=== PATIENT | female | born 1970 | race Caucasian/White ===

== ENCOUNTER 2020-08-01 19:08 | Emergency (ER) | payer OTHER, SELFPAY ==
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
[2020-08-01 19:05] VITALS: BP 128/82; PULSE 102; RESP 20; TEMP 36.5; O2SAT 99
[2020-08-01] MEDS: OLANZapine 10 MG INJ VIAL (19:36)
[2020-08-01] MEDS: WATER, STERILE FOR INJECTION 10 ML VIAL XX (19:36)
[2020-08-01 19:41] LABS: Basophils Absolute Auto 0.1 K/mm3 (0.0-0.1); Eosinophils Absolute Auto 0.2 K/mm3 (0-0.3); Eosinophils Percent Auto 2.7 % (0-4.4); Hematocrit 38.9 % (37.0-47.0); Hemoglobin 13.4 g/dL (12.0-15.0); Lymphocytes Absolute Auto 4.35 K/mm3 (0.9-3.2); Lymphocytes Percent Auto 69.8 % (18.3-44.2); Mean Corpuscular HGB Conc 34.4 g/dl (32-36); Mean Corpuscular Hemoglobin 35.4 pg (26-34); Mean Corpuscular Volume 102.6 fl (80-100); Mean Platelet Volume 9.6 fl (7.4-10.4); Monocytes Absolute Auto 0.3 K/mm3 (0.1-0.6); Monocytes Percent Auto 5.5 % (2.6-8.5); Neutrophils Absolute Auto 1.3 K/mm3 (1.3-6.7); Platelet Count Result 164 k/mm3 (150-375); Red Blood Count 3.79 M/mm3 (4.2-5.4); Red Cell Distribution Width 14.2 % (11.5-14.5); White Blood Count 6.2 K/mm3 (4.5-10.0)
[2020-08-01 19:54] LABS: Alanine Aminotransferase 24 U/L (4-35); Albumin Level 4.3 g/dL (3.5-5.1); Alkaline Phosphatase 107 U/L (38-126); Anion Gap 17 mmol/L (8-16); Aspartate Amino Transferase 77 U/L (14-36); Bilirubin,Total 0.4 mg/dL (0.2-1.3); Blood Urea Nitrogen 12 mg/dL (7-17); Calcium 8.4 mg/dL (8.4-10.2); Carbon Dioxide 23 mmol/L (22-30); Chloride 103 mmol/L (98-107); Estimated Glomerular Filt Rate > 60; Glucose 87 mg/dL (65-105); Potassium 3.6 mmol/L (3.4-5.0); Sodium 143 mmol/L (137-145)
[2020-08-01] MEDS: LORazepam INJ (*CRX) 2 MG/ML VIAL IV PUSH (19:57)
[2020-08-01 20:05] LABS: Ethanol 369 mg/dL (<10)
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
[2020-08-01 20:36] LABS: Add Urine Microscopic? YES; Appearance Urine Clear (Clear); Bacteria Urine Trace /hpf; Bilirubin Urine Negative (Negative); Blood Urine 1+ (Negative); Color Urine Yellow (Yellow); Glucose Urine UA Negative (Negative); Hyaline Casts Urine 20-29 /lpf; Ketones Urine Negative (Negative); Leukocyte Esterase Ur Negative LEU/UL (Negative); Mucus Urine Rare /lpf; Nitrate Urine Negative (Negative); Protein Urine 1+ mg/dL (Negative); Squamous Epithelial Cell Urine Rare /hpf (Few); Urobilinogen Urine Negative mg/dL (<2.0); WBC Urine 0-3 /hpf
[2020-08-01 20:49] LABS: Amphetamine Screen Urine Negative (Negative); Barbiturate Screen Urine Negative (Negative); Benzodiazepines Screen Urine Negative (Negative); Cannabinoid Screen Urine Negative (Negative); Cocaine Screen Urine Negative (Negative); Methadone Screen Urine Negative (Negative); Opiate Screen Urine Negative (Negative); Phencyclidine Screen Urine Negative (Negative)
[2020-08-01 21:39] VITALS: BP 118/79; PULSE 81; RESP 20; O2SAT 97
[2020-08-02 00:54] VITALS: BP 128/72; PULSE 89; RESP 16; O2SAT 98
--- NOTE | 2020-08-02 01:05 | PC.NURSE ---
pt came out of room and wants to leave. explained to patient that we could not allow her to leave until she had a ride, due to her high alcohol level. pt upset. dr ansari told her that she could go if she had a ride. pt walks out. pt denies si/hi.
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
[2020-08-02 01:54] LABS: Ethanol 161 mg/dL (<10)
[2020-08-02 18:13] LABS: SARS-CoV-2 RNA PCR Negative
== END 2020-08-02 01:30 | disposition left against medical advice (07) ==
PROVIDERS: Emergency Provider Emergency Medicine
DX: F10.929 Alcohol use, unspecified with intoxication, unspecified (principal); S00.03XA Contusion of scalp, initial encounter; Z20.822 Contact with and (suspected) exposure to COVID-19; Y90.8 Blood alcohol level of 240 mg/100 ml or more; Y04.2XXA Assault by strike against or bumped into by another person, initial encounter
CPT/HCPCS: 36415; 70450; 80053; 80307; 81001; 81025; 85025; 96374; 96375; 99284; C9803; J2060; U0003; U0005

== ENCOUNTER 2020-08-15 18:26 | Inpatient (IN) | payer OTHER, SELFPAY ==
--- NOTE | ~2020-08-15 | CT_ITS ---
EXAMINATION: CT abdomen pelvis w con DATE: 08/15/2020 22:19 INDICATION: Abdominal pain TECHNIQUE: Computed tomography (CT) of the abdomen and pelvis was performed with 100 mL Omnipaque-350 intravenous contrast. Automated exposure control and iterative reconstruction technique were employe d. The dose-length product was 212.05 mGy-cm. COMPARISON: None FINDINGS: Mild discoid atelectasis in the right middle lobe. Small pneumatocele in the left lower lobe. Heart s ize is normal. No pericardial or pleural effusion. Small sliding-type hiatal hernia. Focal hepatic st eatosis at the ligamentum teres. Gallbladder is distended to 4.3 cm but without wall thickening or pe richolecystic inflammatory change to suggest acute cholecystitis. Spleen, bilateral adrenal glands an d kidneys are normal. There is mild stranding and small amount of retroperitoneal fluid along the martha l of the pancreas raising concern for acute interstitial pancreatitis. Pancreas itself is normal in a ppearance with homogeneous parenchymal enhancement. Normal appendix. No bowel obstruction. The uterus and bilateral adnexa are unremarkable. Mild diffuse bladder wall thickening likely due to nearly dec ompressed state although differential includes cystitis either acute or chronic. No abscess or free i ntraperitoneal gas. No pathologically enlarged abdominal or pelvic lymphadenopathy. Moderate to sever e lower lumbar spondylosis. IMPRESSION: 1. Radiographically uncomplicated acute interstitial pancreatitis. Correlate with amylase and lipase levels. 2. Small sliding-type hiatal hernia. 3. Diffuse mild bladder wall thickening likely due to decompressed state although differential would include cystitis either acute or chronic and would correlate with urinalysis. Reviewed, dictated and finalized at [facility]. [employer] ENGINEERING PROFESSOR IMPRESSION: 1. Radiographically uncomplicated acute interstitial pancreatitis. Correlate wi th amylase and lipase levels. 2. Small sliding-type hiatal hernia. 3. Diffuse mild bladder wall thickening likely due to decompressed state althou gh differential would include cystitis either acute or chronic and would correl ate with urinalysis.
[2020-08-15 18:23] VITALS: BP 159/100; PULSE 91; RESP 17; TEMP 36.2; O2SAT 98
--- NOTE | 2020-08-15 19:36 | PC.NURSE ---
Pt upset wanting to leave so she can go out and smoke. Dr. Jenkins spoke with patient. Per Dr. Jenkins it is ok for patient to go out and smoke and then come back in to room 4. IV removed from left AC intact. Bandaid applied.
--- NOTE | 2020-08-15 19:40 | PC.NURSE ---
Gait steady. Patient AXO x3. Pt returned to room 4.
[2020-08-15 20:07] LABS: Basophils Percent Auto 0.5 % (0.2-1.2); Eosinophils Percent Auto 0.1 % (0-4.4); Hematocrit 37.5 % (37.0-47.0); Hemoglobin 13.1 g/dL (12.0-15.0); Immature Granulocyte Absolute 0.02 K/mm3 (0.00-0.031); Immature Granulocyte Percent A 0.3 % (0-0.5); Lymphocytes Percent Auto 11.6 % (18.3-44.2); Mean Corpuscular HGB Conc 34.9 g/dl (32-36); Mean Corpuscular Hemoglobin 35.9 pg (26-34); Mean Corpuscular Volume 102.7 fl (80-100); Monocytes Absolute Auto 0.3 K/mm3 (0.1-0.6); Neutrophils Absolute Auto 6.5 K/mm3 (1.3-6.7); Neutrophils Percent Auto 83.5 % (45.5-73.1); Platelet Count Result 185 k/mm3 (150-375); Red Blood Count 3.65 M/mm3 (4.2-5.4); Red Cell Distribution Width 14.4 % (11.5-14.5); White Blood Count 7.8 K/mm3 (4.5-10.0)
[2020-08-15 20:14] LABS: Add Urine Microscopic? YES; Appearance Urine Turbid (Clear); Bacteria Urine Trace /hpf; Bilirubin Urine Negative (Negative); Blood Urine Negative (Negative); Color Urine Yellow (Yellow); Glucose Urine UA Negative (Negative); Ketones Urine Negative (Negative); Leukocyte Esterase Ur 1+ LEU/UL (Negative); Mucus Urine Heavy /lpf; Nitrate Urine Negative (Negative); Protein Urine 2+ mg/dL (Negative); Specific Grav Ur 1.027 (1.001-1.035); Squamous Epithelial Cell Urine Many /hpf (Few); Urobilinogen Urine Negative mg/dL (<2.0)
[2020-08-15 20:18] LABS: Alanine Aminotransferase 22 U/L (4-35); Albumin Level 4.4 g/dL (3.5-5.1); Alkaline Phosphatase 124 U/L (38-126); Anion Gap 14 mmol/L (8-16); Aspartate Amino Transferase 57 U/L (14-36); Bilirubin,Total 0.3 mg/dL (0.2-1.3); Blood Urea Nitrogen 25 mg/dL (7-17); Calcium 8.4 mg/dL (8.4-10.2); Carbon Dioxide 25 mmol/L (22-30); Chloride 99 mmol/L (98-107); Estimated CRCL calculation 67 ml/min; Estimated Glomerular Filt Rate > 60; Glucose 95 mg/dL (65-105); Lipase 1542 U/L (23-300); Potassium 3.8 mmol/L (3.4-5.0); Sodium 138 mmol/L (137-145)
--- NOTE | 2020-08-15 20:25 | ED.GENADULT ---
HPI - General Adult General Chief complaint: Alcohol Stated complaint: ETOH Time Seen by Provider: 08/15/20 19:27 Source: patient History of Present Illness HPI narrative: Patient is a 49 y/o female complaining of abdominal pain starting today. Her pain is located in epigastric area with radiation to back sometimes. She describes her pain as hunger pain. She rates her pain as 7/10. She states that she has been drinking and she thinks she is having withdrawal. She also has been having nausea and vomiting. Her last drink was 2-3 hours ago. Related Data Home Medications Medication Instructions Recorded Confirmed escitalopram oxalate 10 mg PO DAILY 08/15/20 08/16/20 quetiapine 100 mg PO DAILY 08/15/20 08/16/20 quetiapine 200 mg PO DAILY 08/15/20 08/16/20 Allergies Allergy/AdvReac Type Severity Reaction Status Date / Time No Known Allergies Allergy Verified 08/01/20 19:57 Review of Systems Constitutional: Constitutional: Denies chills, Denies fever(s), Denies headache(s) and Denies weakness Eyes: Eyes: Denies blurry vision ENT: Denies headache(s) and Denies neck pain Cardiovascular: Cardiovascular: Denies chest pain and Denies dyspnea Respiratory: Respiratory: Denies cough and Denies dyspnea Gastrointestinal: Gastrointestinal: Reports abdominal pain, Denies diarrhea, Reports nausea and Reports vomiting Genitourinary: Genitourinary: Denies hematuria and Denies dysuria Musculoskeletal: Musculoskeletal: Denies back pain and Denies neck pain Neurologic: Denies headache(s) and Denies weakness [facility] Family History Family History (Updated 08/16/20 @ 00:19 by Kyra Muñoz RN) Other Unknown family medical history Social History Social History Smoking packs per day: 0.5 Smoking cigarettes per day: 10.0 Years smoked: 30 Smoking pack-years: 15.00 Smoking status: Current every day smoker Tobacco type: cigarettes Alcohol intake: current Drinks per week: 6 Substance use: current Substance use type: does not use Spiritual care concerns: No Exam Const: General: no acute distress and well developed Orientation/consciousness: oriented to person, oriented to place, oriented to time and patient oriented x3 HENMT: Head: normocephalic Ears: external ears normal General nose exam: Normal external nose present Eyes: General: appearance normal, both eyes and all related structures Conjunctivae: conjunctivae normal Neck: Neck: normal visual inspection and full ROM Chest: Chest palpation & inspection: normal inspection of the chest and no tenderness Resp: Effort & Inspection: normal respiratory effort Auscultation: clear to auscultation bilaterally Cardio: Rate: regular rate Rhythm: regular rhythm GI: GI Palp: Yes abdominal tenderness (epigastric) and Yes Soft to palpation Skin: General skin exam: normal color and turgor normal Neuro: General: oriented to person, oriented to place, oriented to time and patient oriented x3 Cognition (Neuro): normal cognition Extrem: General: normal to inspection, full ROM and no pedal edema Psych: Appearance: grossly normal Mental Status: mental status grossly normal Affect: normal affect Course Consultations Consultation #1: Discussed with Dr. Machuca, who agrees to admit. Date: 08/15/20 Time: 20:56 Vital Signs Vital signs: Vital Signs Temperature 36.2 C L 08/15/20 18:23 Pulse Rate 91 08/15/20 18:23 Respiratory Rate 17 08/15/20 18:23 Blood Pressure 159/100 H 08/15/20 18:23 Pulse Oximetry 98 08/15/20 18:23 Temperature 37.0 C 08/15/20 23:51 Pulse Rate 93 08/15/20 23:51 Respiratory Rate 21 H 08/15/20 23:51 Blood Pressure 154/85 H 08/15/20 23:51 Pulse Oximetry 100 08/15/20 23:51 Medical Decision Making Vital Signs Vital Signs: Vital Signs Temperature 36.2 C L 08/15/20 18:23 Pulse Rate 91 08/15/20 18:23 Respiratory Rate 17 08/15/20 18:
[2020-08-15 20:30] VITALS: BP 136/70; PULSE 88; RESP 18; O2SAT 100
[2020-08-15 20:49] LABS: Ethanol 179 mg/dL (<10)
--- NOTE | 2020-08-15 21:11 | PC.NURSE ---
Walked into patients room. Pt dressed and sitting in chair sticking fingers down her throat.
[2020-08-15] MEDS: SODIUM CHLORIDE 0.9% IV 1,000 ML 999 ML IV CONT (21:45)
[2020-08-15] MEDS: ONDANSETRON INJ 4 MG/2 ML VIAL IV PUSH (21:46)
[2020-08-15] MEDS: KETOROLAC 30 MG/ML VIAL (*BKC) IV PUSH (21:46)
[2020-08-15 22:03] VITALS: BP 141/96; PULSE 107; RESP 18; O2SAT 100
[2020-08-15] MEDS: LORazepam INJ (*CRX) 2 MG/ML VIAL 1 MG IV PUSH (22:03)
[2020-08-15] MEDS: SODIUM CHLORIDE 0.9% IV 1,000 ML 150 ML IV CONT (23:40)
--- NOTE | 2020-08-15 23:41 | ADMGEN ---
This patient, Tiff Sadler, was admitted to Medical Room 241-01. Patient/family oriented to hospital policies and general routines including ID bracelet, bed and alarms, visiting hours, pain management, procedures, bathroom and other care routines, personal items, smoking policy, room service/diet, and visiting hours. Information on how to activate the Rapid Response Team has been discussed. Patient/Family are encouraged to report perceived risks to care and to ask questions if they do not understand what they are told or what they should do.
[2020-08-15 23:49] VITALS: BMI 21.3
[2020-08-15 23:51] VITALS: BP 154/85; PULSE 93; RESP 21; TEMP 37; O2SAT 100
[2020-08-16] VITALS (7 sets, daily range): BP systolic 108–138; BP diastolic 69–82; PULSE 85–97; RESP 14–21; TEMP 36.1–37.1; O2SAT 93–100
[2020-08-16 01:09] LABS: Amphetamine Screen Urine Negative (Negative); Barbiturate Screen Urine Negative (Negative); Benzodiazepines Screen Urine Positive (Negative); Cannabinoid Screen Urine Negative (Negative); Cocaine Screen Urine Negative (Negative); Methadone Screen Urine Negative (Negative); Opiate Screen Urine Negative (Negative); Phencyclidine Screen Urine Negative (Negative)
[2020-08-16] MEDS: KETOROLAC 15 MG/ML VIAL (*BKC) 30 MG IV PUSH ×2 (01:42→08:56)
[2020-08-16] MEDS: THIAMINE HCL 200 MG/2 ML VIAL 100 MG IV PUSH ×2 (01:45→08:33)
[2020-08-16] MEDS: chlordiazePOXIDE (*CRX) 25 MG CAPSULE PO ×2 (01:49→08:56)
[2020-08-16] MEDS: QUEtiapine FUMARATE 100 MG TABLET 200 MG PO ×2 (02:14→02:15)
[2020-08-16] MEDS: LORazepam INJ (*CRX) 2 MG/ML VIAL 1 MG IV PUSH (03:53)
[2020-08-16 06:00] LABS: Alanine Aminotransferase 18 U/L (4-35); Albumin Level 3.4 g/dL (3.5-5.1); Alkaline Phosphatase 93 U/L (38-126); Anion Gap 8 mmol/L (8-16); Aspartate Amino Transferase 49 U/L (14-36); Bilirubin,Total 0.6 mg/dL (0.2-1.3); Blood Urea Nitrogen 22 mg/dL (7-17); Calcium 7.2 mg/dL (8.4-10.2); Carbon Dioxide 24 mmol/L (22-30); Chloride 102 mmol/L (98-107); Estimated CRCL calculation 75 ml/min; Estimated Glomerular Filt Rate > 60; Glucose 69 mg/dL (65-105); Potassium 3.8 mmol/L (3.4-5.0); Sodium 134 mmol/L (137-145)
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
[2020-08-16 07:04] LABS: Folic Acid 7.3 ng/mL (2.76->20)
[2020-08-16] MEDS: SODIUM CHLORIDE 0.9% IV 1,000 ML 150 ML IV CONT (07:13)
[2020-08-16 07:48] LABS: Hemoglobin 9.8 g/dL (12.0-15.0); Mean Corpuscular Hemoglobin 35.9 pg (26-34); Mean Corpuscular Volume 102.6 fl (80-100); Mean Platelet Volume 9.7 fl (7.4-10.4); Platelet Count Result 121 k/mm3 (150-375); Red Blood Count 2.73 M/mm3 (4.2-5.4); Red Cell Distribution Width 14.6 % (11.5-14.5)
[2020-08-16 08:10] LABS: Lipase 1847 U/L (23-300)
[2020-08-16] MEDS: PANTOPRAZOLE SODIUM IV 40 MG VIAL IV PUSH (08:33)
[2020-08-16] MEDS: QUEtiapine FUMARATE 100 MG TABLET PO (08:34)
[2020-08-16] MEDS: NICOTINE (*PBKC) 4 MG GUM PO (08:39)
--- NOTE | 2020-08-16 14:43 | PC.NURSE ---
On 08/16/20, the student, [PINKY FARRELL], provided care and completed [facility] documentation on this patient. I have reviewed the student's documentation and agree with the findings.
--- NOTE | 2020-08-16 18:13 | PM.DS ---
DS: Admitting Diagnosis Admitting Diagnosis Admitting Diagnosis: Acute pancreatitis DS: Discharge Diagnosis Discharge Diagnosis (1) Acute alcoholic pancreatitis: Qualifiers: Acute pancreatitis complication: no infection or necrosis Qualified Code(s): K85.20 - Alcohol induced acute pancreatitis without necrosis or infection Code(s): K85.20 - Alcohol induced acute pancreatitis without necrosis or infection Status: Acute Assessment and Plan: Date of Admission 08/15/20 Date of Discharge/DOS 08/16/20 Ms. Sadler is a 49yo F depression and chronic alcohol abuse who presented to the ED for evaluation of abdominal pain. She describes she has an appointment tomorrow to be admitted to inpatient alcohol rehab at [facility] in [place]. Her last drink was 2-3 hours prior to arriving to the ED. On arrival to the ED patient CIWA score was 16 improved after receiving Ativan and Librium. She was having visual hallucinations. She was describing tremors and feeling mildly anxious. Lipase was elevated in CT abdomen/pelvis was consistent with acute pancreatitis. The following day, the symptoms were resolved with Librium and she denied having any abdominal pain. Her diet was advanced and she continued to tolerate meals without abdominal pain, nausea, or vomiting. She was adamant about discharge on 08/16/2020 so that she would be able to go to inpatient alcohol rehab while the resources were available to her. She was tolerating a diet and hemodynamically stable for discharge without symptoms of alcohol withdrawal on 08/16/2020 with instructions to follow-up with PCP and her alcohol rehab program tomorrow. (2) Alcohol withdrawal: Qualifiers: Complication of substance-induced condition: with unspecified complication Qualified Code(s): F10.239 - Alcohol dependence with withdrawal, unspecified Code(s): F10.239 - Alcohol dependence with withdrawal, unspecified Status: Resolved Assessment and Plan: With tremors, anxiousness, visual hallucinations which were resolved with Librium. She will go to inpatient alcohol rehab tomorrow, which she had arranged prior to her arrival to the ED. (3) Tobacco abuse disorder: Code(s): Z72.0 - Tobacco use Status: Chronic Assessment and Plan: Chronic. Denied nicotine patch. Smoking cessation advised. DS: Summary Hospital Course Hospital Course: See above Time Spent with Patient Time attestation: Total time spent providing and/or coordinating discharge services: 35 minutes Exam Narrative: Exam Narrative: PHYSICAL EXAM: WEIGHT 58.2 kg BMI 21.4 General: Disheveled, poor hygiene, appears older than stated age HEENT: Multiple dental caries with associated gingivitis, pupils are equal and reactive, no scleral icterus, head is normocephalic atraumatic, tattoo to the lateral right eye Respiratory: Clear to auscultation bilaterally, respirations even and nonlabored. Cardiovascular: Regular rate, regular rhythm, no murmurs, 2+ pulses bilateral upper lower extremity Gastrointestinal: Soft, normoactive bowel sounds, nondistended, nontender to palpation. Musculoskeletal: No clubbing, cyanosis or edema Neurological: Alert and oriented, speech is clear, no facial asymmetry Psychiatric: Anxious, restless, easily distracted DS: Data Data Completed and Pending Labs on day of discharge: Last Vital Signs Temp 97.0 F L 08/16/20 18:00 Pulse 85 08/16/20 18:00 Resp 16 08/16/20 18:00 BP 138/82 08/16/20 18:00 Pulse Ox 93 08/16/20 18:00 ITS Impressions Abdomen/Pelvis CT 08/15/20 22:21 IMPRESSION: 1. Radiographically uncomplicated acute interstitial pancreatitis. Correlate with amylase and lipase levels. 2. Small sliding-type hiatal hernia. 3. Diffuse mild bladder wall thickening likely due to decompressed
[2020-08-16] MEDS: CEFDINIR 300 MG CAPSULE PO (19:31)
== END 2020-08-16 19:40 | disposition home or self-care (01) | DRG 282 ==
LOC: ANHED 19:27 → ANH2MED 21:48
PROVIDERS: Physician Assistant; Admitting Provider Internal Medicine; Emergency Provider Emergency Medicine; Visit Provider Family Medicine
DX: K85.20 Alcohol induced acute pancreatitis without necrosis or infection (principal); F10.239 Alcohol dependence with withdrawal, unspecified; F17.210 Nicotine dependence, cigarettes, uncomplicated; Y90.6 Blood alcohol level of 120-199 mg/100 ml; N39.0 Urinary tract infection, site not specified; B96.20 Unspecified Escherichia coli [E. coli] as the cause of diseases classified elsewhere
CPT/HCPCS: 36415; 74177; 80053; 80307; 81001; 81025; 82607; 82746; 83690; 85025; 85027; 87077; 87086; 87088; 87186; 96361; 96374; 96375; 96376; 99285; A9270; C9113; G0378; G0379; J1885; J2060; J2405; J3411; J7030; Q9967

== ENCOUNTER 2020-11-24 13:23 | Inpatient (IN) | payer OTHER, SELFPAY ==
--- NOTE | ~2020-11-24 | XR_ITS ---
XR chest 2V DATE: 11/24/2020 14:12 INDICATION: Right rib pain. Ethanol abuse. TECHNIQUE: PA and lateral views COMPARISON: None FINDINGS: Probable old right scapular body fracture deformity. There is prominent discoid atelectasis or scarring at the right lung base. The lungs are otherwise mi ldly hyperinflated but clear of infiltrate or consolidation. No pleural effusion or pulmonary vascula r congestion or pneumothorax. No hilar or mediastinal enlargement. Normal heart size. Osteopenia. IMPRESSION: Discoid atelectasis or scarring at the right lung base Probable old right scapular body fracture deformity Reviewed, dictated and finalized at location B.
--- NOTE | ~2020-11-24 | CT_ITS ---
EXAMINATION: CTA chest PE abdomen pel EXAM DATE: 11/24/2020 16:14 INDICATION: Right chest pain. Abdominal pain. History pancreatitis TECHNIQUE: Spiral CTA of the chest (pulmonary arteries) was performed with 100 cc Omnipaque 350 intr avenous contrast injection. Images were acquired during the pulmonary arterial phase. Coronal maxi mum intensity projection 3D-reconstructions were created by the technologist on dedicated workstation . Axial, coronal and sagittal reformatted images were reviewed. Spiral CT of the abdomen and pelvis was then performed with the same intravenous contrast injection. Axial, coronal and sagittal reform atted images were reviewed. The dose-length product (DLP) for this examination was 395.42 mGy-cm. T he exposure was tailored according to patient size (auto mA exposure control), and iterative reconst ruction (ASIR) was used as additional dose reduction technique. Comparison is made to prior examinati on from 08/15/2020. FINDINGS: CHEST: Pulmonary arteries are well opacified and without intraluminal filling defects. There is mild emphysema. Scattered right basilar subsegmental atelectasis. There is 5 mm nodule in the left upper lobe on axial image 41; 6-12 month follow-up CT chest recommended. No thoracic aortic dissection. Th e lungs are clear. There are no pleural or pericardial effusions. Tracheobronchial tree is patent . There is no mediastinal, hilar or axillary lymphadenopathy. There is no pneumothorax. Heart n ormal in size. No evidence of coronary arterial calcification. ABDOMEN PELVIS: There is mild inflammation surrounding the pancreas, acute pancreatitis. There is hep atic steatosis without suspicious focal lesion identified. Spleen, adrenal glands are unremarkable. Gallbladder is unremarkable. No biliary obstruction. Portal and splenic veins are patent. Kidneys enhance symmetrically. There is no hydronephrosis. The uterus is unremarkable. The bladder is unr emarkable. There is no retroperitoneal or pelvic lymphadenopathy. The appendix is normal. The stomach and small bowel are unremarkable. There is expected amount of c olonic stool. No free intraperitoneal gas. There are no osteoblastic or osteolytic lesions identi fied. IMPRESSION: 1. Left upper lobe nodule; 6-12 month follow-up chest CT without contrast recommended. 2. Mild emphysema and hyperinflation. 3. Mild peripancreatic inflammation, acute pancreatitis. 4. Hepatic steatosis. Reviewed, dictated and finalized at location A. IMPRESSION: 1. Left upper lobe nodule; 6-12 month follow-up chest CT without contrast mervin mmended. 2. Mild emphysema and hyperinflation. 3. Mild peripancreatic inflammation, acute pancreatitis. 4. Hepatic steatosis.
[2020-11-24 13:34] VITALS: BP 106/74; PULSE 120; RESP 20; TEMP 36.8; O2SAT 99
--- NOTE | 2020-11-24 13:35 | ECG_ITS ---
Measurements Intervals [place] Rate: 114 P: 76 W[place]: 129 QRS: 69 QRSD: 90 T: 81 QT: 342 QTc: 472 Interpretive Statements SINUS TACHYCARDIA BORDERLINE T WAVE ABNORMALITY- HIGH LATERAL LEADS BASELINE ARTIFACT- I, II, III, AVR, AVL,A VF, V3-V6 ABNORMAL ECG Electronically Signed On 11-24-2020 13:51:55 CDT by Robert Mobley D.O.
--- NOTE | 2020-11-24 13:53 | ED.GENADULT ---
HPI - General Adult General Chief complaint: Unspecified Stated complaint: Difficulty Breathing/pancreatitis Time Seen by Provider: 11/24/20 13:37 Source: patient and RN notes reviewed Mode of arrival: ambulatory Limitations: no limitations History of Present Illness HPI narrative: This is a 50 year old female with histrory of pancreatitis and alcohol abuse who presents for evaluation of possible pancreatitis and right rib pain. She states she fell 1 week ago and she has been having pain since. She denies sob, worsening cough, fever or chills. She reports nausea and vomiting but she denies diarrhea. She also denies melena or blood in her stool. She reports drinking alcohol today. Related Data Home Medications Medication Instructions Recorded Confirmed escitalopram oxalate 10 mg PO DAILY 08/15/20 08/16/20 Allergies Allergy/AdvReac Type Severity Reaction Status Date / Time No Known Allergies Allergy Verified 08/16/20 04:47 Review of Systems Review of Systems: All systems reviewed & are unremarkable except as noted in HPI and below PMFSH Past Medical History Medical History Alcoholism Anxiety Depression Migraines Surgical History Surgical History (Updated 08/16/20 @ 07:25 by Ying Machuca DO) No significant past surgical history Family History Family History (Updated 08/16/20 @ 07:20 by Ying Machuca DO) Other Adopted Social History Social History (Updated 08/16/20 @ 07:30 by Ying Machuca DO) Social History: She is currently unemployed and only works odd jobs. She has lost her 13-year-old daughter due to her alcohol abuse. She is now and states that she is at [facility]. She drinks a 5th of vodka or whiskey a day and has done so for 10 years. She has been through alcohol rehabilitation multiple times without success. She smokes half a pack of cigarettes per day currently but has smoked as much as a pack of cigarettes per day. She started smoking at 20 years of age. She adamantly denies illicit substance use. Smoking packs per day: 0.5 Smoking cigarettes per day: 10.0 Years smoked: 30 Smoking pack-years: 15.00 Smoking status: Current every day smoker Tobacco type: cigarettes Alcohol intake: current Substance use: current Substance use type: does not use Other substance usage details: pt states she drinks 5th of vodka a day or whatever she can get Gender identity (if verbalized by the patient): Female Spiritual care concerns: No Exam Narrative: Exam Narrative: GENERAL: Well-appearing, well-nourished, and in no acute distress. HEAD: Normocephalic, atraumatic EYES: PERRLA and EOMI, conjunctiva clear without discharge THROAT:Mucous membranes moist, Oropharynx normal without erythema, exudate, peritonsillar swelling or fluctuance NECK: Supple, without lymphadenopathy or mass RESPIRATORY: No respiratory distress, Airway patent, Respirations non-labored, Clear to auscultation without rales, rhonchi or wheeze; right rib tenderness, no bruising, no crepitus HEART: Regular rate and rhythm. No murmur heard. Normal peripheral pulses. ABDOMEN: Soft, RUQ, epigastric, nondistended, normal active bowel sounds. No masses. No rebound or guarding, No organomegaly. EXTREMITIES: No edema, normal strength with full range of motion. SKIN: Warm, dry, normal color without rash NEURO: Alert and oriented x3. CN 2-12 grossly intact. No focal deficits. PSYCH: Normal mood and affect. Course Reevaluation(s) Reevaluation #1: I have discussed with patient that she be admitted for acute pancreatitis. She will be monitored for alcohol withdrawal. Date: 11/24/20 Time: 17:21 Consultations Consultation #1: I Discussed with Akua alvarado who accepts patient to hospitalist service. Date: 11/24/20 Time: 17:20 Vital Signs Vital signs: Vital Signs Temperature 98.3 F 11/24/20 13:34 Pulse Rate
--- NOTE | 2020-11-24 14:00 | PC.NURSE ---
Pt resting on cart, non-labored respirations, states I drink all day every day, last drink this morning and I think it's my pancreatitis . +N/V, -D.
[2020-11-24] MEDS: LACTATED RINGERS 1,000 ML 999 ML IV CONT (14:02)
[2020-11-24] MEDS: ONDANSETRON INJ 4 MG/2 ML VIAL IV PUSH ×2 (14:02→17:05)
--- NOTE | 2020-11-24 14:40 | PC.NURSE ---
Pt's IV line found intact on floor, I asked trouble locator test desk staff if they saw a lady with dreadlocks exit, they confirmed. Dr. Ibrahim and charge nurse aware
[2020-11-24 14:43] LABS: Basophils Absolute Auto 0.1 K/mm3 (0.0-0.1); Basophils Percent Auto 1.7 % (0.2-1.2); Eosinophils Absolute Auto 0.1 K/mm3 (0-0.3); Eosinophils Percent Auto 1.7 % (0-4.4); Hematocrit 36.3 % (37.0-47.0); Hemoglobin 12.3 g/dL (12.0-15.0); Immature Granulocyte Absolute 0.02 K/mm3 (0.00-0.031); Immature Granulocyte Percent A 0.4 % (0-0.5); Lymphocytes Absolute Auto 2.45 K/mm3 (0.9-3.2); Mean Corpuscular HGB Conc 33.9 g/dl (32-36); Mean Corpuscular Hemoglobin 35.9 pg (26-34); Mean Corpuscular Volume 105.8 fl (80-100); Mean Platelet Volume 9.4 fl (7.4-10.4); Monocytes Absolute Auto 0.6 K/mm3 (0.1-0.6); Monocytes Percent Auto 10.9 % (2.6-8.5); Neutrophils Percent Auto 38.3 % (45.5-73.1); Platelet Count Result 284 k/mm3 (150-375); Red Blood Count 3.43 M/mm3 (4.2-5.4); Red Cell Distribution Width 18.7 % (11.5-14.5); White Blood Count 5.2 K/mm3 (4.5-10.0)
--- NOTE | 2020-11-24 14:44 | PC.NURSE ---
pt walked out - states she cannot take all the beeping and noises going on in the ER. She pulled her own IV out - pt left before signing out AMA or getting d/c inst.
[2020-11-24 14:54] LABS: INR 0.9; Prothrombin Time 12.5 Seconds (11.1-14.7)
[2020-11-24 14:55] LABS: Partial Thromboplastin Time 27.8 SECONDS (22.3-36.8)
[2020-11-24 14:59] LABS: Lactic Acid Reflex 4.3 mmol/L (0.7-2.1)
--- NOTE | 2020-11-24 15:00 | PC.NURSE ---
Pt returned to room after pulling out own IV and absconding
[2020-11-24 15:01] LABS: Alanine Aminotransferase 41 U/L (4-35); Albumin Level 4.1 g/dL (3.5-5.1); Alkaline Phosphatase 120 U/L (38-126); Anion Gap 14 mmol/L (8-16); Aspartate Amino Transferase 112 U/L (14-36); Bilirubin,Total 0.3 mg/dL (0.2-1.3); Blood Urea Nitrogen 6 mg/dL (7-17); Calcium 9.3 mg/dL (8.4-10.2); Carbon Dioxide 26 mmol/L (22-30); Chloride 101 mmol/L (98-107); Estimated CRCL calculation 65 ml/min; Estimated Glomerular Filt Rate > 60; Glucose 110 mg/dL (65-105); Lipase 1102 U/L (23-300); Magnesium 1.5 mg/dL (1.6-2.3); Potassium 3.8 mmol/L (3.4-5.0); Sodium 141 mmol/L (137-145)
[2020-11-24 15:11] LABS: D Dimer 2.74 ug/mL (<0.48)
--- NOTE | 2020-11-24 15:14 | PC.NURSE ---
pt did not leave the waiting room - decided to come back to finish her ER eval.
--- NOTE | 2020-11-24 15:30 | PC.NURSE ---
IV fluid bolus initiated, pt asking I need Librium for detox and morphine for my pancreatitis, I'm a mess
[2020-11-24] MEDS: SODIUM CHLORIDE 0.9% IV 1,000 ML 999 ML IV CONT ×2 (15:35→17:05)
[2020-11-24 15:54] LABS: Add Urine Microscopic? YES; Appearance Urine Clear (Clear); Bacteria Urine Trace /hpf; Bilirubin Urine Negative (Negative); Blood Urine Negative (Negative); Color Urine Yellow (Yellow); Glucose Urine UA Negative (Negative); Ketones Urine Negative (Negative); Leukocyte Esterase Ur Negative LEU/UL (Negative); Mucus Urine Rare /lpf; Nitrate Urine Positive (Negative); Protein Urine Negative (Negative); RBC Urine 0-2 /hpf (0-2); Specific Grav Ur 1.005 (1.001-1.035); Squamous Epithelial Cell Urine Moderate /hpf (Few); Urobilinogen Urine Negative mg/dL (<2.0); WBC Urine 0-3 /hpf
[2020-11-24 16:20] LABS: Amphetamine Screen Urine Negative (Negative); Barbiturate Screen Urine Negative (Negative); Benzodiazepines Screen Urine Positive (Negative); Cannabinoid Screen Urine Negative (Negative); Cocaine Screen Urine Negative (Negative); Methadone Screen Urine Negative (Negative); Opiate Screen Urine Negative (Negative); Phencyclidine Screen Urine Negative (Negative)
--- NOTE | 2020-11-24 16:55 | PC.NURSE ---
Pt ambulating steady gait around room, redirected to cart and reapplied to monitor. No active vomiting. Fluid boluses in progress, call light within reach
[2020-11-24] MEDS: MORPHINE SULFATE (*CRX) 4 MG/ML INJ IV PUSH ×2 (17:05→21:13)
[2020-11-24 17:08] VITALS: BP 119/86; PULSE 98; RESP 22; O2SAT 100
[2020-11-24 17:40] LABS: Reflex Lactic Acid Yes or No Add Lactic
[2020-11-24 18:11] LABS: Lactic Acid 2.9 mmol/L (0.7-2.1)
[2020-11-24 18:50] VITALS: BP 148/97; PULSE 93; RESP 19; O2SAT 97
[2020-11-24] MEDS: SODIUM CHLORIDE 0.9% IV 1,000 ML 125 ML IV CONT (21:16)
[2020-11-24 22:00] VITALS: BP 138/71; PULSE 94; RESP 18; TEMP 37.4; O2SAT 97
[2020-11-25] VITALS (9 sets, daily range): BP systolic 93–138; BP diastolic 60–85; PULSE 83–100; RESP 16–18; TEMP 36.7–37.5; O2SAT 96–97
[2020-11-25] MEDS: MAGNESIUM SULF 4 GM/WATER100ML 4 GM/100 ML BAG IVPB (03:27)
[2020-11-25] MEDS: THIAMINE HCL 200 MG/2 ML VIAL 100 MG IV PUSH ×2 (03:27→09:13)
[2020-11-25] MEDS: SODIUM CHLORIDE 0.9% IV 1,000 ML 150 ML IV CONT ×3 (03:29→20:00)
[2020-11-25] MEDS: LORazepam INJ (*CRX) 2 MG/ML VIAL 1 MG IV PUSH (03:41)
--- NOTE | 2020-11-25 06:29 | PM.IMHP ---
H&P: HPI History of Present Illness Date/Time: 11/25/20 06:29 Chief Complaint: Abdominal pain, vomiting Narrative: 50-year-old female past medical history of alcoholism, alcoholic pancreatitis and depression who presented to the ER with nausea vomiting and abdominal pain. The patient had last been admitted the hospital in August of 2020 due to alcoholic pancreatitis. She was discharged that same day as she was scheduled to be admitted to inpatient alcohol detox program. That was the last time the patient had went to detox. She has since resumed drinking a 5th of vodka a day. Pain ongoing for 3 days. She reports that the only thing that helps her pain is to drink alcohol. She reports that she will have episodes of dry heaving. She will drink some water in order to have something to vomit. However she does not vomit when she is drinking her alcohol. She reports that her right before she came to the ER her abdominal pain was a 9/10 in intensity. She reports that it is a sensation of your ?stomach being extremely hungry and trying to eat itself.? Her pain is now down to a 5/10 in intensity. She has not been having any diarrhea, hematochezia, melena, or hematemesis. She reports that her pain does not radiate to her back like it did with her prior episode of pancreatitis. Her pain is mostly in the epigastric region but does also rate 88 to her right rib cage. She thought that she may have a pneumothorax as she had had 1 in the past. She denies any shortness of breath or chest pain. She has not been having any cough or congestion. She still continues to smoke a half pack cigarettes per day. The patient reports that her last drink was about 2 hours prior to coming to the ER. Review of Systems Review of Systems: Narrative: 12 systems were reviewed with pertinent positives and negatives per HPI. Except as documented in the HPI, all other systems were reviewed and are negative. [facility] Past Medical History Medical History Alcoholism Anxiety Depression Migraines Surgical History Surgical History No significant past surgical history Family History Family History Other Adopted Social History Social History (Updated 11/25/20 @ 06:36 by Ying Machuca DO) Social History: She is currently unemployed and only works odd jobs. She has lost her 13-year-old daughter due to her alcohol abuse. She is now and states that she is at [facility]. She is living with a boyfriend. She drinks a 5th of vodka or whiskey a day and has done so for 10 years. She has been through alcohol rehabilitation multiple times without success. She smokes half a pack of cigarettes per day currently but has smoked as much as a pack of cigarettes per day. She started smoking at 20 years of age. She adamantly denies illicit substance use. Smoking packs per day: 0.5 Smoking cigarettes per day: 10.0 Years smoked: 30 Smoking pack-years: 15.00 Smoking status: Current every day smoker Tobacco type: cigarettes Alcohol intake: current Drinks per week: 5 Substance use: never Substance use type: does not use Other substance usage details: 5th of Vodka a day, last use was 11/25/2019 at 1000 Gender identity (if verbalized by the patient): Female Spiritual care concerns: No Meds Home Medications and Allergies Home Medications Medication Instructions Recorded Confirmed Type quetiapine 100 mg PO QAM #0 tablet 08/16/20 11/24/20 Rx quetiapine 200 mg PO HS #0 tablet 08/16/20 11/24/20 Rx Allergies Allergy/AdvReac Type Severity Reaction Status Date / Time No Known Allergies Allergy Verified 08/16/20 04:47 Vital Signs Vital Signs - 24 hr 11/24/20 13:34 11/24/20 17:08 11/24/20 18:50 Temperature 98.3 F Pulse Rate 120 H 98 93 Respiratory Rate 20
[2020-11-25 06:33] LABS: Basophils Percent Auto 1.1 % (0.2-1.2); Eosinophils Absolute Auto 0.1 K/mm3 (0-0.3); Eosinophils Percent Auto 3.2 % (0-4.4); Hematocrit 29.1 % (37.0-47.0); Hemoglobin 9.4 g/dL (12.0-15.0); Immature Granulocyte Absolute 0.01 K/mm3 (0.00-0.031); Immature Granulocyte Percent A 0.4 % (0-0.5); Lymphocytes Percent Auto 31.7 % (18.3-44.2); Mean Corpuscular HGB Conc 32.3 g/dl (32-36); Mean Corpuscular Hemoglobin 35.7 pg (26-34); Mean Corpuscular Volume 110.6 fl (80-100); Mean Platelet Volume 9.4 fl (7.4-10.4); Monocytes Absolute Auto 0.1 K/mm3 (0.1-0.6); Monocytes Percent Auto 4.9 % (2.6-8.5); Neutrophils Absolute Auto 1.7 K/mm3 (1.3-6.7); Neutrophils Percent Auto 58.7 % (45.5-73.1); Platelet Count Result 191 k/mm3 (150-375); Red Blood Count 2.63 M/mm3 (4.2-5.4); Red Cell Distribution Width 19.2 % (11.5-14.5); White Blood Count 2.8 K/mm3 (4.5-10.0)
[2020-11-25 06:43] LABS: Lactic Acid Reflex 0.6 mmol/L (0.7-2.1)
[2020-11-25 06:53] LABS: Alanine Aminotransferase 31 U/L (4-35); Alkaline Phosphatase 91 U/L (38-126); Anion Gap 0 mmol/L (8-16); Aspartate Amino Transferase 78 U/L (14-36); Bilirubin,Total 0.7 mg/dL (0.2-1.3); Blood Urea Nitrogen 8 mg/dL (7-17); Calcium 7.9 mg/dL (8.4-10.2); Carbon Dioxide 28 mmol/L (22-30); Chloride 107 mmol/L (98-107); Estimated CRCL calculation 73 ml/min; Estimated Glomerular Filt Rate > 60; Glucose 79 mg/dL (65-105); Lipase 394 U/L (23-300); Potassium 3.9 mmol/L (3.4-5.0); Sodium 135 mmol/L (137-145)
[2020-11-25 06:56] LABS: Phosphorus 3.7 mg/dL (2.5-4.5)
[2020-11-25] MEDS: FAMOTIDINE 20 MG/2 ML VIAL IV PUSH ×2 (09:11→21:21)
[2020-11-25] MEDS: NICOTINE (*PBKC) 21 MG PATCH 1 PATCH TRANSDERM (09:12)
[2020-11-25] MEDS: QUEtiapine FUMARATE 100 MG TABLET PO (09:13)
[2020-11-25] MEDS: MORPHINE SULFATE (*CRX) 4 MG/ML INJ IV PUSH ×3 (13:17→21:21)
[2020-11-25] MEDS: QUEtiapine FUMARATE 100 MG TABLET 200 MG PO (21:21)
[2020-11-26] VITALS (10 sets, daily range): BP systolic 114–125; BP diastolic 61–86; PULSE 82–89; RESP 16–20; TEMP 36.3–36.4; O2SAT 94–97
[2020-11-26] MEDS: SODIUM CHLORIDE 0.9% IV 1,000 ML 150 ML IV CONT ×2 (05:47→09:41)
[2020-11-26] MEDS: QUEtiapine FUMARATE 100 MG TABLET PO (08:35)
[2020-11-26] MEDS: THIAMINE HCL 200 MG/2 ML VIAL 100 MG IV PUSH (08:35)
[2020-11-26] MEDS: NICOTINE (*PBKC) 21 MG PATCH 1 PATCH TRANSDERM (08:35)
[2020-11-26] MEDS: FAMOTIDINE 20 MG/2 ML VIAL IV PUSH ×2 (08:35→20:31)
--- NOTE | 2020-11-26 17:55 | PM.IMPN ---
Progress Note: A&P Assessment and Plan (1) Acidosis, lactic: Code(s): E87.2 - Acidosis Status: Acute (2) Tobacco abuse disorder: Code(s): Z72.0 - Tobacco use Status: Chronic (3) Acute alcoholic pancreatitis: Qualifiers: Acute pancreatitis complication: no infection or necrosis Qualified Code(s): K85.20 - Alcohol induced acute pancreatitis without necrosis or infection Code(s): K85.20 - Alcohol induced acute pancreatitis without necrosis or infection Status: Acute (4) Alcohol withdrawal: Qualifiers: Complication of substance-induced condition: with unspecified complication Qualified Code(s): F10.239 - Alcohol dependence with withdrawal, unspecified Code(s): F10.239 - Alcohol dependence with withdrawal, unspecified Status: Resolved (5) COPD (chronic obstructive pulmonary disease): Code(s): J44.9 - Chronic obstructive pulmonary disease, unspecified Status: Acute (6) Pulmonary nodule less than 1 cm in diameter with moderate to high risk for malignant neoplasm: Code(s): R91.1 - Solitary pulmonary nodule; Z91.89 - Other specified personal risk factors, not elsewhere classified Status: Acute Additional Plan 11/25/20 The patient has acute alcoholic pancreatitis. She is NPO and is on IV fluid hydration at 150 mL an hour. P.r.n. morphine has been ordered. An extensive discussion was held with the patient regarding the importance of abstaining from alcohol use. IV thiamine supplementation has been ordered until the patient can take p.o. supplements. Repeat CBC CMP and lipase have been ordered. Will also check magnesium and phosphorus as the patient did have some mild hypo magnesemia in the ER. Patient received 4 g magnesium sulfate rider. The patient had CIWA scores as high as 16 on presentation to the medical floor her CIWA score the time of my evaluation was down to 0 after 1 dose of IV Ativan. Will continue to monitor CIWA scores Q 4 hours. Patient is not interested in quitting smoking tobacco and a nicotine patch has been ordered. Tobacco cessation education information has been provided in written form. The patient did have lactic acidosis likely secondary to dehydration and alcohol use. Her lactic acid level improved with IV fluids. Will repeat lactic acid level with a.m. labs. 11/26/20 advance diet to clears 4mg IV morphine q 2 hr to 2mg IV morphine q6hrs start norco for 4-6 pain and percocet for 7-10 pain smoking cessation counceling pt w emphysema on imaging, 30 yr tob hx, and pulm nodule anticipate dc tomorrow Subjective Date/time seen: 11/26/20 17:55 Patient doing okay long discuss patient regarding her alcoholism and life events causing this behavior. She is well connected to support systems she just is not ready to accept their help at this time. Patient is strongly advised to stop smoking. She has been counseled for greater than 3 minutes on this. Additionally she is advised to stop drinking and to seek professional help when she is ready. Today she reports that her pain has improved but she is very frightened that this will recur. She is advised that if she drinks she will likely have another attack of acute pancreatitis. Exam Narrative: Exam Narrative: GEN: NAD, cooperative, appropriate HEENT: NCAT, MMM, EOMI Neck: no JVD Lungs: Symmetric chest rise, no use of accessory muscles Abd: soft, NT, ND, bowel sounds normoactive Ext: moves all, no cyanosis, no clubbing, no edema Neuro: cranial nerves intact, no focal neurological deficits appreciated, AAOx3 Psych: moood and affect congruent Objective Data Vital Signs Vital Signs: Vital Signs - 24 hr 11/25/20 20:00 11/25/20 22:00 11/26/20 00:00 Temperature 98.3 F Pulse Rate 86 83 83 Respiratory Rate 16 Blood Pressure 124/85 Pulse Oximetry 97 11/26/20 06:00 11/26/20 08:00 11/26/20 12:00 Temperature 97.5 F L Pulse Rate 89 84 87 Respiratory R
[2020-11-26] MEDS: oxyCODONE/ACETAMINOPHEN (*CRX) 5-325 MG TABLET 1 TABLET PO (20:29)
[2020-11-26] MEDS: QUEtiapine FUMARATE 100 MG TABLET 200 MG PO (21:38)
[2020-11-27] VITALS: PULSE 73
[2020-11-27 04:00] VITALS: PULSE 71
[2020-11-27 05:59] VITALS: BP 132/90; PULSE 87; RESP 16; TEMP 36.1; O2SAT 100
[2020-11-27 08:00] VITALS: PULSE 110
[2020-11-27] MEDS: oxyCODONE/ACETAMINOPHEN (*CRX) 5-325 MG TABLET 1 TABLET PO (09:05)
[2020-11-27] MEDS: FOLIC ACID 1 MG TABLET PO (09:06)
[2020-11-27] MEDS: NICOTINE (*PBKC) 21 MG PATCH 1 PATCH TRANSDERM (09:06)
[2020-11-27] MEDS: THIAMINE HCL 100 MG TABLET PO (09:06)
[2020-11-27] MEDS: FAMOTIDINE 20 MG/2 ML VIAL IV PUSH (09:06)
[2020-11-27] MEDS: QUEtiapine FUMARATE 100 MG TABLET PO (09:07)
[2020-11-27 09:38] VITALS: O2SAT 97
[2020-11-27 12:00] VITALS: PULSE 80
--- NOTE | 2020-11-27 12:41 | PM.DS ---
DS: Admitting Diagnosis Admitting Diagnosis Admitting Diagnosis: (1) Acute alcoholic pancreatitis: Qualifiers: Acute pancreatitis complication: no infection or necrosis Qualified Code(s): K85.20 - Alcohol induced acute pancreatitis without necrosis or infection Code(s): K85.20 - Alcohol induced acute pancreatitis without necrosis or infection Status: Acute (2) Acidosis, lactic: Code(s): E87.2 - Acidosis Status: Acute (3) Alcohol withdrawal: Qualifiers: Complication of substance-induced condition: with unspecified complication Qualified Code(s): F10.239 - Alcohol dependence with withdrawal, unspecified Code(s): F10.239 - Alcohol dependence with withdrawal, unspecified Status: Resolved (4) Tobacco abuse disorder: Code(s): Z72.0 - Tobacco use Status: Chronic DS: Discharge Diagnosis Discharge Diagnosis (1) Pulmonary nodule less than 1 cm in diameter with moderate to high risk for malignant neoplasm: Code(s): R91.1 - Solitary pulmonary nodule; Z91.89 - Other specified personal risk factors, not elsewhere classified Status: Acute (2) COPD (chronic obstructive pulmonary disease): Code(s): J44.9 - Chronic obstructive pulmonary disease, unspecified Status: Acute (3) Acidosis, lactic: Code(s): E87.2 - Acidosis Status: Acute (4) Tobacco abuse disorder: Code(s): Z72.0 - Tobacco use Status: Chronic (5) Acute alcoholic pancreatitis: Qualifiers: Acute pancreatitis complication: no infection or necrosis Qualified Code(s): K85.20 - Alcohol induced acute pancreatitis without necrosis or infection Code(s): K85.20 - Alcohol induced acute pancreatitis without necrosis or infection Status: Acute (6) Alcohol withdrawal: Qualifiers: Complication of substance-induced condition: with unspecified complication Qualified Code(s): F10.239 - Alcohol dependence with withdrawal, unspecified Code(s): F10.239 - Alcohol dependence with withdrawal, unspecified Status: Resolved DS: Summary Hospital Course Reason for hospitalization: abd pain Hospital Course: 11/25/20 The patient has acute alcoholic pancreatitis. She is NPO and is on IV fluid hydration at 150 mL an hour. P.r.n. morphine has been ordered. An extensive discussion was held with the patient regarding the importance of abstaining from alcohol use. IV thiamine supplementation has been ordered until the patient can take p.o. supplements. Repeat CBC CMP and lipase have been ordered. Will also check magnesium and phosphorus as the patient did have some mild hypo magnesemia in the ER. Patient received 4 g magnesium sulfate rider. The patient had CIWA scores as high as 16 on presentation to the medical floor her CIWA score the time of my evaluation was down to 0 after 1 dose of IV Ativan. Will continue to monitor CIWA scores Q 4 hours. Patient is not interested in quitting smoking tobacco and a nicotine patch has been ordered. Tobacco cessation education information has been provided in written form. The patient did have lactic acidosis likely secondary to dehydration and alcohol use. Her lactic acid level improved with IV fluids. Will repeat lactic acid level with a.m. labs. 11/26/20 advance diet to clears 4mg IV morphine q 2 hr to 2mg IV morphine q6hrs start norco for 4-6 pain and percocet for 7-10 pain smoking cessation counceling pt w emphysema on imaging, 30 yr tob hx, and pulm nodule anticipate dc tomorrow 11/27/20 dc home in stable condition f/u w PCP and psychiatrist for ongoing care repeat imaging outpt Time spent discussing smoking cessation with patient: 3 to 10 minutes Status at Discharge Functional status at discharge: independent ambulation Overall status at discharge: patient is back to baseline Time Spent with Patient Time attestation: Total time spent providing and/or coordinating discharge services: Ste[place]
== END 2020-11-27 14:50 | disposition home or self-care (01) | DRG 282 ==
LOC: ANHED 15:09 → ANH3MEDSUR 22:16
PROVIDERS: Internal Medicine; Admitting Provider Family Medicine; Emergency Provider General Practice; Visit Provider Hospitalist
DX: K85.20 Alcohol induced acute pancreatitis without necrosis or infection (principal); Z72.0 Tobacco use; E87.2 Acidosis; F10.239 Alcohol dependence with withdrawal, unspecified; J44.9 Chronic obstructive pulmonary disease, unspecified; R91.1 Solitary pulmonary nodule
CPT/HCPCS: 36415; 71046; 71275; 74177; 80053; 80307; 81001; 81025; 83605; 83690; 83735; 84100; 85025; 85380; 85610; 85730; 93005; 96361; 96374; 96375; 96376; 99285; A9270; J2060; J2270; J2405; J3411; J3475; J7030; J7120; Q9967

== ENCOUNTER 2021-02-14 11:13 | Emergency (ER) | payer OTHER, SELFPAY ==
--- NOTE | 2021-02-14 11:21 | PC.NURSE ---
pt yelling at staff, being violent and refusing treatment. this rn attempted to speak with pt about receiving care but pt continues to yell a staff.
--- NOTE | 2021-02-14 11:21 | PC.NURSE ---
security velarde and kenia boucher contacted.
--- NOTE | 2021-02-14 11:22 | PC.NURSE ---
upon arrival to er, pt got off stretcher and refused to be evaluated. pt also refused to put her shoes on and states she wants to know where the exit is because she does not want evaluation. ems report that pt initially stated she wanted rehab for her alcoholism. pt got ahold of some alcohol she had in her bag and drank it in front of ems. pt walked out of hospital, unsteady gait, [facility] contacted and speaking with pt in parking lot.
--- NOTE | 2021-02-14 11:25 | PC.NURSE ---
Dr. Marroquin aware of pts arrival and choice to leave facility without treatment.
--- NOTE | 2021-02-14 11:49 | PC.NURSE ---
Pt in parking lot refusing to come in to hospital for evaluation. per [facility], [facility] contacted.
--- NOTE | 2021-02-14 12:45 | ED.ALCOHOL ---
HPI - Alcohol General Chief Complaint: Alcohol Stated Complaint: ambulance Time Seen by Provider: 02/14/21 11:20 Source: other (Pt was not seen by Dr Marroquin in the ED on 02/14/2021.) Mode of arrival: other (The patient walked out of the ED as she wanted to be taken to another ED.) Related Data Allergies Allergy/AdvReac Type Severity Reaction Status Date / Time No Known Allergies Allergy Verified 08/16/20 04:47 [facility] Past Medical History Medical History Alcoholism Anxiety Depression Migraines Surgical History Surgical History No significant past surgical history Family History Family History Other Adopted Social History Social History (Updated 11/25/20 @ 06:36 by Ying Machuca DO) Social History: She is currently unemployed and only works odd jobs. She has lost her 13-year-old daughter due to her alcohol abuse. She is now and states that she is at [facility] She is living with a boyfriend. She drinks a 5th of vodka or whiskey a day and has done so for 10 years. She has been through alcohol rehabilitation multiple times without success. She smokes half a pack of cigarettes per day currently but has smoked as much as a pack of cigarettes per day. She started smoking at 20 years of age. She adamantly denies illicit substance use. Smoking packs per day: 0.5 Smoking cigarettes per day: 10.0 Years smoked: 30 Smoking pack-years: 15.00 Smoking status: Current every day smoker Tobacco type: cigarettes Alcohol intake: current Drinks per week: 5 Substance use: never Substance use type: does not use Other substance usage details: 5th of Vodka a day, last use was 11/25/2019 at 1000 Gender identity (if verbalized by the patient): Female Spiritual care concerns: No Discharge Plan Discharge Clinical Impression: Alcoholic intoxication Patient Disposition: Left Against Medical Advice Condition: Stable Additional Instructions: Pt was not seen in the ED. No PMH or PSH were discussed. Prescriptions: No Action nicotine [Nicoderm CQ] 21 mg/24 hr Patch 24 Hour 1 patch transdermal QAM Qty: 30 RF: 1 ibuprofen 800 mg tablet 800 mg PO TID PRN (Reason: pain) Qty: 10 RF: 0 quetiapine 200 mg tablet 200 mg PO HS Qty: 0 RF: 0 quetiapine 100 mg tablet 100 mg PO QAM Qty: 0 RF: 0 Follow-up/Referrals: UNKNOWN,DOCTOR [Primary Care Provider] - Time of Disposition: 11:55
== END 2021-02-14 11:54 | disposition left against medical advice (07) ==
PROVIDERS: Emergency Provider Emergency Medicine
DX: F10.129 Alcohol abuse with intoxication, unspecified (principal)
CPT/HCPCS: 99281; 99282

== ENCOUNTER 2021-02-14 12:46 | Emergency (ER) | payer OTHER, SELFPAY ==
--- NOTE | 2021-02-14 13:15 | PC.NURSE ---
pt escorted off premisis by lexi boucher.
--- NOTE | 2021-02-14 14:59 | PC.NURSE ---
1246 PT ARRIVED PER [facility], REFUSING TO ENTER ED TO BE SEEN. PT AMBULATED TO MAIN ED ENTRANCE AND ENTERED ED,REFUSING TO BE REGISTERED, SAT IN LOBBY. PT DECIDED TO BE REGISTERED. SITTING IN LOBBY WAITING TO BE SEEN,ARGUING WITH OTHER PTS, AND CUSSING AND YELLING AT STAFF AND OTHER PTS, THREATENING TO HIT THE OTHER PTS. PD CONTACTED.
== END 2021-02-14 13:00 | disposition left against medical advice (07) ==
DX: Z53.21 Procedure and treatment not carried out due to patient leaving prior to being seen by health care provider (principal)
CPT/HCPCS: 99199

== ENCOUNTER 2021-02-17 14:06 | Emergency (ER) | payer OTHER, SELFPAY ==
--- NOTE | 2021-02-17 | ECG_ITS ---
Measurements Intervals [place] Rate: 94 P: 72 CA: 141 QRS: 63 QRSD: 81 T: 81 QT: 336 QTc: 422 Interpretive Statements SINUS RHYTHM NORMAL ECG Electronically Signed On 02-17-2021 14:55:28 CDT by Robert Mobley D.O.
[2021-02-17 14:23] VITALS: BP 118/85; PULSE 100; RESP 18; TEMP 36.6; O2SAT 100
[2021-02-17 14:52] LABS: Basophils Absolute Auto 0.1 K/mm3 (0.0-0.1); Eosinophils Absolute Auto 0.1 K/mm3 (0-0.3); Eosinophils Percent Auto 2.3 % (0-4.4); Hematocrit 37.3 % (37.0-47.0); Hemoglobin 12.7 g/dL (12.0-15.0); Immature Granulocyte Absolute 0.01 K/mm3 (0.00-0.031); Immature Granulocyte Percent A 0.2 % (0-0.5); Lymphocytes Absolute Auto 3.28 K/mm3 (0.9-3.2); Lymphocytes Percent Auto 54.3 % (18.3-44.2); Mean Corpuscular Hemoglobin 33.6 pg (26-34); Mean Corpuscular Volume 98.7 fl (80-100); Mean Platelet Volume 9.1 fl (7.4-10.4); Monocytes Absolute Auto 0.3 K/mm3 (0.1-0.6); Neutrophils Absolute Auto 2.3 K/mm3 (1.3-6.7); Neutrophils Percent Auto 37.2 % (45.5-73.1); Platelet Count Result 325 k/mm3 (150-375); Red Blood Count 3.78 M/mm3 (4.2-5.4); Red Cell Distribution Width 12.6 % (11.5-14.5)
[2021-02-17 15:02] LABS: Ethanol 182 mg/dL (<10)
[2021-02-17 15:05] LABS: Alanine Aminotransferase 40 U/L (4-35); Albumin Level 4.3 g/dL (3.5-5.1); Alkaline Phosphatase 119 U/L (38-126); Anion Gap 13 mmol/L (8-16); Aspartate Amino Transferase 68 U/L (14-36); Bilirubin,Total 0.4 mg/dL (0.2-1.3); Blood Urea Nitrogen 13 mg/dL (7-17); Calcium 9.1 mg/dL (8.4-10.2); Carbon Dioxide 24 mmol/L (22-30); Chloride 101 mmol/L (98-107); Estimated CRCL calculation 75 ml/min; Estimated Glomerular Filt Rate > 60; Glucose 101 mg/dL (65-110); Potassium 4.3 mmol/L (3.4-5.0); Sodium 138 mmol/L (137-145)
[2021-02-17] MEDS: PHENobarbitaL sodium (*CRX) 130 MG/ML VIAL IV PUSH (17:27)
[2021-02-17] MEDS: THIAMINE HCL 200 MG/2 ML VIAL 500 MG IV PUSH (17:27)
--- NOTE | 2021-02-17 18:39 | ED.ALCOHOL ---
HPI - Alcohol General Chief Complaint: Alcohol Stated Complaint: ETOH detox Time Seen by Provider: 02/17/21 16:50 Source: patient Mode of arrival: EMS Limitations: no limitations History of Present Illness HPI narrative: 50-year-old female Here because of alcohol problems Patient states she has been to rehab 6 or 7 times and is usually dry when she is in rehab but not when she is not She was recently at [facility] in [place] left a couple days ago she is not sure precisely and has been back to drinking a pint of vodka a day She really does not have any withdrawal symptoms at all right now, she feels like she might get shaky but she is not, she is just worried that she might, stating that she feels like a [place] It seems like this is mainly because she is staying with a male acquaintance and is short on scott and her lodging and ethanol access is a little uncertain She has not vomiting, seizing, tremoring, hallucinating Related Data Home Medications Medication Instructions Recorded Confirmed escitalopram oxalate mg 02/17/21 02/17/21 mirtazapine mg 02/17/21 olanzapine mg 02/17/21 Allergies Allergy/AdvReac Type Severity Reaction Status Date / Time No Known Allergies Allergy Verified 02/17/21 16:45 Review of Systems Review of Systems: All systems reviewed & are unremarkable except as noted in HPI and below Constitutional: Constitutional: Reports no additional constitutional complaints, Denies chills, Denies fever(s), Denies headache(s) and Reports weakness Eyes: Eyes: Reports no additional eye complaints and Denies change in vision ENT: Denies headache(s) and Denies sore throat Cardiovascular: Cardiovascular: Denies chest pain and Denies dyspnea Respiratory: Respiratory: Denies cough and Denies dyspnea Gastrointestinal: Gastrointestinal: Denies abdominal pain, Denies diarrhea and Denies vomiting Genitourinary: Genitourinary: Denies urinary frequency and Denies dysuria Musculoskeletal: Musculoskeletal: Denies deformity, Denies arthralgias, Denies joint swelling and Denies numbness Integumentary/Breasts: Skin/Breast: Denies rash and Denies wounds Neurologic: Denies headache(s), Denies focal weakness and Denies numbness Psychiatric: Psychiatric: Reports no additional psychiatric complaints Endocrine: Endocrine: Reports no additional endocrine complaints Hematologic/Lymphatic: Hematologic/Lymphatic: Reports no additional hematologic/lymphatic complaints Allergic/Immunologic: Allergic/Immunologic: Reports no additional allergic/immunologic complaints PMFSH Past Medical History Medical History Alcoholism Anxiety Depression Migraines Surgical History Surgical History No significant past surgical history Family History Family History Other Adopted Social History Social History (Updated 11/25/20 @ 06:36 by Ying Machuca DO) Social History: She is currently unemployed and only works odd jobs. She has lost her 13-year-old daughter due to her alcohol abuse. She is now and states that she is at [facility]. She is living with a boyfriend. She drinks a 5th of vodka or whiskey a day and has done so for 10 years. She has been through alcohol rehabilitation multiple times without success. She smokes half a pack of cigarettes per day currently but has smoked as much as a pack of cigarettes per day. She started smoking at 20 years of age. She adamantly denies illicit substance use. Smoking packs per day: 0.5 Smoking cigarettes per day: 10.0 Years smoked: 30 Smoking pack-years: 15.00 Smoking status: Current every day smoker Tobacco type: cigarettes Alcohol intake: current Drinks per week: 5 Substance use: never Substance use type: does not use Other substance usage details:
== END 2021-02-17 19:36 | disposition home or self-care (01) ==
PROVIDERS: Emergency Medicine; Emergency Provider Emergency Medicine
DX: F10.229 Alcohol dependence with intoxication, unspecified (principal); F41.9 Anxiety disorder, unspecified; F32.9 Major depressive disorder, single episode, unspecified; F17.210 Nicotine dependence, cigarettes, uncomplicated; Y90.6 Blood alcohol level of 120-199 mg/100 ml
CPT/HCPCS: 36415; 80053; 80307; 85025; 93005; 96374; 96375; 99284; J2560; J3411